=== PATIENT | female | born 1970 | race Caucasian/White ===

== ENCOUNTER 2016-07-12 21:23 | Emergency (ER) | payer MEDICAID ==
--- NOTE | 2016-07-31 21:34 | ER ---
ADMIT: 07/12/2016 RM/LOC: [facility] MR#: [id number] [facility] [id number] KRISTEN, ALEENA Hinds [address] [place] [address] Emergency Room Report SEX: F AGE: 46 : 1970 DATE: 07/12/2016 A 46-year-old who comes to the Emergency Department with 30 days worth of right leg pain. She is now concerned about possible clot and she has had that in the past. See T-sheet for history and physical. Ultrasound of the lower extremity was negative. The patient was diagnosed with leg pain and varicose veins. Encouraged to follow up as needed. Rick Riggs MD/ marco JOB #: [id number] CC: Leon Murguia MD, Attending Physician Jazmine Blankenship MD, Family Physician
== END 2016-07-12 23:00 | disposition home or self-care (01) ==
LOC: ER 21:23
DX: I83.91 Asymptomatic varicose veins of right lower extremity (principal); F17.210 Nicotine dependence, cigarettes, uncomplicated; Z86.59 Personal history of other mental and behavioral disorders; Z88.8 Allergy status to other drugs, medicaments and biological substances